=== PATIENT | male | born 1995 | race Caucasian/White ===

== ENCOUNTER 2021-02-20 16:16 | Emergency (ER) | payer MEDICAID ==
[~2021-02-20] VITALS: Ht 180.3 cm; Wt 81.6 kg
[2021-02-20 16:22] VITALS: BP 139/79
--- NOTE | 2021-02-20 16:24 | NUR ---
Patient ambulated to bed 11 with steady/even gait.
--- NOTE | 2021-02-20 16:39 | NUR ---
SOUMYA Boothe is evaluating the patient at bedside.
--- NOTE | 2021-02-20 16:39 | NUR ---
PT COMPLAINS OF SORE THROAT X 2 WEEKS. PT COMPLAINS OF DIFFICULTY SWALLOWING AND TALKING DUE TO PAIN. PT DENIES SOB. AFEBRILE, RESP EVEN AND UNLABORED, NO DROOLING, SPEECH IS CLEAR. BED IN LOW LOCK POSITION, AWAITING MD SCHWARTZ.
[2021-02-20] MEDS ORDERED: PRED20TA5 PO (16:45)
[2021-02-20] MEDS ORDERED: KETOROLAC 30 MG/ML VIAL IM ONE (16:45)
[2021-02-20] MEDS ORDERED: PENI500T20 PO (16:45)
[2021-02-20] MEDS ORDERED: IBUP-2213 PO (16:45)
[2021-02-20 17:01] VITALS: BP 121/66
--- NOTE | 2021-02-20 17:03 | NUR ---
Patient discharged with v/s stable. Written and verbal after care instructions given and explained. Patient alert, oriented and verbalized understanding of instructions. Ambulatory with steady gait. All questions addressed prior to discharge. ID band removed. Patient advised to follow up with PMD. Rx of PENICILLIN v pOTASSIUM, PREDNISONE, IBUPROFEN given. Patient educated on indication of medication including possible reaction and side effects. Opportunity to ask questions provided and answered.
== END 2021-02-20 17:00 | disposition home or self-care (01) ==
LOC: MED 16:16
DX: J02.0 Streptococcal pharyngitis (principal); Z79.899 Other long term (current) drug therapy
CPT/HCPCS: 96372; 99283; J1885